=== PATIENT | female | born 1970 | race Caucasian/White ===

== ENCOUNTER 2016-04-26 21:29 | Emergency (ER) | payer SELFPAY ==
[2016-04-27] MEDS ORDERED: ZOLPIDEM TARTRATE 5 MG TABLET ONE (00:34)
== END 2016-04-27 01:40 | disposition home or self-care (01) ==
LOC: ED 21:29
DX: S61.411A Laceration without foreign body of right hand, initial encounter (principal); S61.412A Laceration without foreign body of left hand, initial encounter; S61.218A Laceration without foreign body of other finger without damage to nail, initial encounter; X99.1XXA Assault by knife, initial encounter; Y92.009 Unspecified place in unspecified non-institutional (private) residence as the place of occurrence of the external cause
CPT/HCPCS: 99283 ×2; 12002 ×2; A9270